=== PATIENT | female | born 1930 | race Caucasian/White ===

== ENCOUNTER 2017-04-29 22:35 | Emergency (ER) | payer MEDICARE, BC ==
--- NOTE | 2017-04-29 22:58 | RAD ---
FRONTAL RADIOGRAPH CHEST 04/29/17 COMPARISON: None. HISTORY: Short of breath. 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 There is no pneumothorax, pleural fluid, focal c onsolidation or alveolar edema. IMPRESSION: No acute findings. POS: [facility]
[2017-04-29 23:24] LABS: #Eosinphils 0.2 thou/uL (0.0-0.7); #Lymphocytes 1.7 thou/uL (1.20-3.40); #Monocytes 0.6 thou/uL (0.11-0.59); #Neutrophils 3.2 thou/uL (1.40-6.50); %Basophils 0.7 % (0.0-1.0); %Eosinophils 4.4 % (0.0-10.0); %Lymphocytes 29.2 % (21.0-51.0); %Monocytes 10.1 % (0.0-10.0); Hematocrit 39.5 % (36.0-47.0); Mean Platelet Volume 6.7 fL (7.4-10.4); White Blood Cell (WBC) Count 5.7 thou/uL (4.8-10.8)
[2017-04-29 23:43] LABS: ALT (SGPT) Less than 7 U/L (8-55); AST (SGOT) 12 U/L (5-34); Alkaline Phosphatase 132 U/L (40-150); Anion Gap 12 mmol/L (10-20); BUN (Urea Nitrogen) 14 mg/dL (9.8-20.1); Bilirubin, Total 0.3 mg/dL (0.2-1.2); Calc. Creatinine Clearance 0 mL/min (70-130); Calcium 9.7 mg/dL (7.8-10.44); Carbon Dioxide 29 mmol/L (23-31); Chloride 100 mmol/L (98-107); Estimated GFR-MDRD 78; Globulin 3.5 g/dL (2.4-3.5); Magnesium 2.3 mg/dL (1.6-2.6); Protein, Total 7.5 g/dL (6.0-8.3)
[2017-04-29 23:47] LABS: Troponin I Less than 0.010 ng/mL (< 0.028)
--- NOTE | 2017-05-02 12:59 | EKG ---
Test Reason : SOB Blood Pressure : / mmHG Vent. Rate : 066 BPM Atrial Rate : 066 BPM P-R Int : 170 ms QRS Dur : 090 ms QT Int : 418 ms P-R-T Axes : 053 -13 034 degrees QTc Int : 438 ms Normal sinus rhythm Normal ECG Confirmed by COLLIN RECINOS ([id number]), writer editor SHAHNAZ KNAPP ([id number]) on 05/02/2017 12:58:43 PM Referred By: Confirmed By:COLLIN RECINOS
== END 2017-04-30 00:38 | disposition home or self-care (01) ==
LOC: ERS 22:35
DX: R09.81 Nasal congestion (principal); E03.9 Hypothyroidism, unspecified
CPT/HCPCS: 36415; 71010; 80053; 82553; 83735; 84484; 85025; 93005

== ENCOUNTER 2017-12-03 19:10 | Emergency (ER) | payer MEDICARE, BC ==
[2017-12-03 19:47] LABS: #Basophils 0.1 thou/uL (0.0-0.2); #Eosinphils 0.1 thou/uL (0.0-0.7); #Lymphocytes 1.9 thou/uL (1.20-3.40); #Monocytes 0.6 thou/uL (0.11-0.59); #Neutrophils 2.9 thou/uL (1.40-6.50); %Basophils 1.4 % (0.0-1.0); %Eosinophils 1.7 % (0.0-10.0); %Lymphocytes 34.4 % (21.0-51.0); %Monocytes 10.3 % (0.0-10.0); %Neutrophils 52.1 % (42.0-75.0); Hemoglobin 14.8 g/dL (12.0-16.0); Mean Corpuscular HGB CONC 35.6 g/dL (32.0-36.0); Mean Corpuscular Hemoglobin 34.2 pg (27.0-31.0); Mean Corpuscular Volume 96.3 fL (78.0-98.0); Mean Platelet Volume 7.2 fL (7.4-10.4); Platelet Count 245 thou/uL (130-400); Red Blood Cell (RBC) Count 4.31 mill/uL (4.20-5.40); White Blood Cell (WBC) Count 5.5 thou/uL (4.8-10.8)
[2017-12-03 20:27] LABS: Bilirubin Negative (Negative); Blood, Urine Moderate (Negative); Clarity CLEAR (Clear); Glucose, Urine (Dipstick) Negative (Negative); Leukocyte Trace (Negative); Nitrite Negative (Negative); Protein, Urine (Dipstick) Negative (Neg-Trace); Specific Gravity, Urine 1.005 (1.002-1.036); Urobilinogen 0.2 mg/dL (0.2-1.0)
[2017-12-03 20:30] LABS: Bacteria/HPF None Seen HPF (None Seen); Hyaline Casts/LPF 0-3 HYALINE CAST LPF (0-3 Hyaline); Pathc Cast-AUWi Flag 0.14 (0-2.49); Squamous Epithelial None Seen HPF (0-3); WBC/HPF 0-3 HPF (0-3)
[2017-12-03 21:00] LABS: Albumin 4.1 g/dL (3.4-4.8)
[2017-12-03 21:02] LABS: Calcium 9.3 mg/dL (7.8-10.44); Chloride 102 mmol/L (98-107); Potassium 3.6 mmol/L (3.5-5.1); Sodium 136 mmol/L (136-145)
[2017-12-03 21:03] LABS: Globulin 2.9 g/dL (2.4-3.5); Glucose 87 mg/dL (83-110)
[2017-12-03 21:04] LABS: Anion Gap 15 mmol/L (10-20); Carbon Dioxide 23 mmol/L (23-31)
[2017-12-03 21:05] LABS: Bilirubin, Total 0.5 mg/dL (0.2-1.2)
[2017-12-03 21:06] LABS: Alkaline Phosphatase 54 U/L (40-150); Calc. Creatinine Clearance 0 mL/min (70-130); Estimated GFR-MDRD 79
[2017-12-03 21:07] LABS: BUN (Urea Nitrogen) 9 mg/dL (9.8-20.1)
[2017-12-03 21:08] LABS: AST (SGOT) 17 U/L (5-34)
[2017-12-03 21:09] LABS: ALT (SGPT) 11 U/L (8-55)
== END 2017-12-03 22:21 | disposition home or self-care (01) ==
LOC: ERS 19:10
DX: R19.7 Diarrhea, unspecified (principal); E03.9 Hypothyroidism, unspecified; Z79.899 Other long term (current) drug therapy
CPT/HCPCS: 36415; 80053; 81003; 81015; 83605; 85025; 93005; 96360